=== PATIENT | male | born 1975 | race Caucasian/White ===

== ENCOUNTER 2018-02-23 21:06 | Emergency (ER) | payer OTHER ==
[~2018-02-23] VITALS: Ht 170.2 cm; Wt 80.0 kg
[~2018-02-23 21:06] MED LIST: GLUCTAB PO
[2018-02-23 22:01] VITALS: BP 124/78; PULSE 82; RESP 18; TEMP 99.4; O2SAT 98
[2018-02-24] MEDS ORDERED: BENA10TA PO (00:46)
[2018-02-24] MEDS ORDERED: METF1000 PO (00:46)
[2018-02-24] MEDS ORDERED: ATOR40TA16 PO (00:46)
[2018-02-24] MEDS ORDERED: SODIUM CHLOR 0.9% 1000 ML INJ 1,000 ML IV ONE (01:19)
[2018-02-24] MEDS ORDERED: SODIUM CHLORIDE 0.9% FLUSH 10 ML FLUSH IVF PRN (01:30)
[2018-02-24 01:48] LABS: AUTOMATED NEUTROPHIL # 7.3 TH/MM3 (1.8-7.7); BASOPHIL % 0.3 % (0.0-2.0); HEMATOCRIT 43.8 % (39.0-51.0); HEMOGLOBIN 14.7 GM/DL (13.0-17.0); LYMPH % 5.7 % (9.0-44.0); LYMPHOCYTE # 0.5 TH/MM3 (1.0-4.8); MEAN CELL VOLUME 83.3 FL (80.0-100.0); MEAN CORPUSCULAR HGB CONC 33.6 % (32.0-36.0); MEAN PLATELET VOLUME 9.5 FL (7.0-11.0); MONO % 5.7 % (0.0-8.0); MONOCYTE # 0.5 TH/MM3 (0-0.9); NEUT % 88.3 % (16.0-70.0); PLATELET COUNT 246 TH/MM3 (150-450); RED BLOOD COUNT 5.25 MIL/MM3 (4.50-5.90); RED CELL DISTRIBUTION WIDTH 13.4 % (11.6-17.2); WHITE BLOOD COUNT 8.2 TH/MM3 (4.0-11.0)
[2018-02-24 01:58] VITALS: BP 116/71; PULSE 75; RESP 16; O2SAT 99
--- NOTE | 2018-02-24 02:11 | PD ---
HPI Chief Complaint: Syncope/Near-Syncope Time Seen by Provider: 01:19 Travel History International Travel<30 days: No Contact w/Intl Traveler<30days: No Traveled to known affect area: No History of Present Illness HPI The patient is 42 years old and arrives to the ER describing near-syncope 3 times a day. This morning he woke up and experienced several episodes of diarrhea nonbloody. Diaphoresis and dizziness that occurred. The patient did not lose consciousness. There is no chest pain shortness of breath or palpitation at that time. No nausea vomiting. Blood glucose was 178. The patient went to work after skipping breakfast. Around 2:30 in the afternoon he again felt very sweaty and dizzy. The patient again felt very dizzy and sweaty at 7 PM. No loss consciousness occurred any the times. He arrives here with the complaints as mentioned. Associated symptoms include body aches and pain. No cough or runny nose. Patient reports running 6 miles yesterday. He also walks 3 miles, much more than normal. PFSH Past Medical History Heart Rhythm Problems: No Cancer: No Cardiac Catheterization: No Cardiovascular Problems: No High Cholesterol: No Congestive Heart Failure: No Diabetes: Yes Patient Takes Glucophage: Yes (02/22/20181999) Endocrine: No Genitourinary: No Hepatitis: No Hiatal Hernia: No Immune Disorder: No Musculoskeletal: No Neurologic: No Psychiatric: No Reproductive: No Respiratory: No Thyroid Disease: No Tetanus Vaccination: Unknown Influenza Vaccination: No Past Surgical History Abdominal Surgery: No AICD: No Cardiac Surgery: No Coronary Artery Bypass Graft: No Ear Surgery: No Endocrine Surgery: No Eye Surgery: No Genitourinary Surgery: No Gynecologic Surgery: No Joint Replacement: No Oral Surgery: No Pacemaker: No Thoracic Surgery: No Family History Family Myocardial Infarction: Yes Social History Alcohol Use: No Tobacco Use: No Substance Use: No Allergies-Medications (Allergen,Severity, Reaction): Coded Allergies: No Known Allergies (Unverified Adverse Reaction, Unknown, 02/23/18) Reported Meds & Prescriptions Reported Meds & Active Scripts Active Reported Atorvastatin (Atorvastatin Calcium) 40 Mg Tab 40 Mg PO HS Benazepril (Benazepril HCl) 10 Mg Tab 10 Mg PO DAILY Metformin (Metformin HCl) 1,000 Mg Tab 1,000 Mg PO BIDPC Review of Systems Except as stated in HPI: all other systems reviewed are Neg General / Constitutional: No: Fever, Chills Physical Exam Narrative GENERAL: 42-year-old male well-nourished well-developed no acute distress Vital Signs Date Time Temp Pulse Resp B/P (MAP) Pulse Ox O2 Delivery O2 Flow Rate FiO2 02/24/18 01:58 75 16 116/71 (86) 99 Room Air 02/24/18 01:58 16 99 Room Air 02/24/18 00:44 16 98 Room Air 02/23/18 22:01 99.4 82 18 124/78 (93) 98 SKIN: Warm and dry. HEAD: Atraumatic. Normocephalic. EYES: Pupils equal and round. No scleral icterus. No injection or drainage. ENT: No nasal bleeding or discharge. Mucous membranes pink and moist. NECK: Trachea midline. No JVD. CARDIOVASCULAR: Regular rate and rhythm. RESPIRATORY: No accessory muscle use. Clear to auscultation. Breath sounds equal bilaterally. GASTROINTESTINAL: Abdomen soft, non-tender, nondistended. Hepatic and splenic margins not palpable. MUSCULOSKELETAL: Extremities without clubbing, cyanosis, or edema. No obvious deformities. NEUROLOGICAL: Awake and alert. No obvious cranial nerve deficits. Motor grossly within normal limits. Five out of 5 muscle strength in the arms and legs. Normal speech. PSYCHIATRIC: Appropriate mood and affect; insight and judgment normal. Data Data Last Documented VS Vital Signs Date Time Temp Pulse Resp B/P (MAP) Pulse Ox O2 Delivery O2 Flow Rate FiO2 02/24/18 01:58 75 16 116/71 (86) 99 Room Air 02/23/18 22:01 99.4 Orders Orders Electrocardiogram (02/24/18:19) Complete Blood Count With Diff (02/24/18:19) Comprehensive Metabolic Panel (02/24/18:19) Magnesium (Mg) (02/24/18 01:19) Ckmb (Isoenzyme) Profile (02/24/18:19) Troponin I (02/24/18:19) Ecg Monitoring (02/24/18:19) Iv Access Insert/Monitor (02/24/18:19) Oximetry (02/24/18:19) Sodium Chloride 0.9% Flush (Ns Flush) (02/24/18 01:30) Sodium Chlor 0.9% 1000 Ml Inj (Ns 1000 M (02/24/18 01:19) Labs Laboratory Tests Test 02/24/18 01:40 White Blood Count 8.2 TH/MM3 Red Blood Count 5.25 MIL/MM3 Hemoglobin 14.7 GM/DL Hematocrit 43.8 % Mean Corpuscular Volume 83.3 FL Mean Corpuscular Hemoglobin 28.0 PG Mean Corpuscular Hemoglobin Concent 33.6 % Red Cell Distribution Width 13.4 % Platelet Count 246 TH/MM3 Mean Platelet Volume 9.5 FL Neutrophils (%) (Auto) 88.3 % Lymphocytes (%) (Auto) 5.7 % Monocytes (%) (Auto) 5.7 % Eosinophils (%) (Auto) 0.0 % Basophils (%) (Auto) 0.3 % Neutrophils # (Auto) 7.3 TH/MM3 Lymphocytes # (Auto) 0.5 TH/MM3 Monocytes # (Auto) 0.5 TH/MM3 Eosinophils # (Auto) 0.0 TH/MM3 Basophils # (Auto) 0.0 TH/MM3 CBC Comment DIFF FINAL Differential Comment Blood Urea Nitrogen 14 MG/DL Creatinine 1.00 MG/DL Random Glucose 228 MG/DL Total Protein 6.9 GM/DL Albumin 3.6 GM/DL Calcium Level 8.1 MG/DL Magnesium Level 1.7 MG/DL Alkaline Phosphatase 107 U/L Aspartate Amino Transf (AST/SGOT) 29 U/L Alanine Aminotransferase (ALT/SGPT) 47 U/L Total Bilirubin 0.7 MG/DL Sodium Level 137 MEQ/L Potassium Level 3.7 MEQ/L Chloride Level 101 MEQ/L Carbon Dioxide Level 27.8 MEQ/L Anion Gap 8 MEQ/L Estimat Glomerular Filtration Rate 81 ML/MIN Total Creatine Kinase 75 U/L Troponin I LESS THAN 0.02 NG/ML MDM Medical Decision Making Medical Screen Exam Complete: Yes Emergency Medical Condition: Yes Medical Record Reviewed: Yes Differential Diagnosis Metabolic disarray, dehydration, anemia, arrhythmia Narrative Course EKG shows sinus rhythm with a rate of 75 normal axis intervals no ischemic injury pattern or preexcitation CBC & BMP Diagram 02/24/18 01:40 Total Protein 6.9, Albumin 3.6, Calcium Level 8.1 L, Magnesium Level 1.7, Alkaline Phosphatase 107, Aspartate Amino Transf (AST/SGOT) 29, Alanine Aminotransferase (ALT/SGPT) 47, Total Bilirubin 0.7 Tn < 0.02 The patient is resting comfortably and feels better, is alert and in no distress. The patients results and examination findings were discussed. The repeat examination is unremarkable and benign. The history, exam, diagnostic testing, and current condition do not suggest any significant pathology to warrant further testing, continued ED treatment, admission, or surgical evaluation at this point. The vital signs have been stable. The patient does not have uncontrollable pain, intractable vomiting, or other significant symptoms. The patient's condition is stable and appropriate for discharge. The patient will pursue further outpatient evaluation with a primary care physician or other designated or consulting physician as indicated in the discharge instructions. The patient expressed understanding and was agreeable with this plan. Diagnosis Primary Impression: Diaphoresis Additional Impressions: Dizziness Near syncope Diarrhea Qualified Codes: R19.7 - Diarrhea, unspecified Referrals: Primary Care Physician 2 days Med/Other Pt SpecificInfo: No Change to Meds Disposition: 01 DISCHARGE HOME Condition: Stable Darinel Richmond MD Feb 24, 2018 02:11
[2018-02-24 02:12] LABS: ALBUMIN 3.6 GM/DL (3.4-5.0); ALT (GPT) 47 U/L (12-78); AST (GOT) 29 U/L (15-37); BICARBONATE 27.8 MEQ/L (21.0-32.0); BLOOD UREA NITROGEN 14 MG/DL (7-18); CALCIUM 8.1 MG/DL (8.5-10.1); CHLORIDE 101 MEQ/L (98-107); GLUCOSE,RANDOM 228 MG/DL (74-106); MAGNESIUM 1.7 MG/DL (1.5-2.5); SODIUM (NA) 137 MEQ/L (136-145)
[2018-02-24 02:16] LABS: ALKALINE PHOSPHATASE 107 U/L (45-117); GLOMERULAR FILTRATION RATE 81 ML/MIN (>89); TOTAL BILIRUBIN ADULT 0.7 MG/DL (0.2-1.0); TOTAL PROTEIN 6.9 GM/DL (6.4-8.2); TROPONIN I LESS THAN 0.02 NG/ML (0.02-0.05)
--- NOTE | 2018-02-24 14:47 | EKG ---
Date Performed: 02/24/2018 Time Performed: 01:55:47 PTAGE: 42 years EKG: Sinus rhythm Since PREVIOUS TRACING , no significant change noted PREVIOUS TRACIN11/23/2013 12.51 DOCTOR: Dre Hodgson Interpretating Date/Time 02/24/2018 14:46:11
== END 2018-02-24 02:54 | disposition home or self-care (01) ==
LOC: NEPD 21:06
DX: R61 Generalized hyperhidrosis (principal); R42 Dizziness and giddiness; R55 Syncope and collapse; R19.7 Diarrhea, unspecified; E11.9 Type 2 diabetes mellitus without complications; Z79.84 Long term (current) use of oral hypoglycemic drugs
CPT/HCPCS: 80053; 82550; 83735; 84484; 85025; 93005; 99284; J7030